=== PATIENT | male | born 1975 | race Caucasian/White ===

== ENCOUNTER 2020-06-17 08:16 | Outpatient (CLI) | payer OTHER ==
[2020-06-17 18:24] LABS: Hemoglobin 14.1 g/dL (14.0-18.0); Mean Corpuscular HGB CONC 32.1 g/dL (32.0-36.0); Mean Corpuscular Hemoglobin 25.2 pg (27.0-31.0); Mean Corpuscular Volume 78.3 fL (78.0-98.0); Mean Platelet Volume 8.9 fL (7.4-10.4); Platelet Count 218 thou/uL (130-400); RBC Distribution Width 14.3 % (11.5-14.5); Red Blood Cell (RBC) Count 5.59 mill/uL (4.70-6.10); White Blood Cell (WBC) Count 8.7 thou/uL (4.8-10.8)
[2020-06-17 18:34] LABS: INR-International Normal Ratio 0.9; PTT 29.2 sec (22.9-36.1); Prothrombin Time 12.5 sec (12.0-14.7)
[2020-06-17 19:23] LABS: Anion Gap 15 mmol/L (10-20); BUN (Urea Nitrogen) 14 mg/dL (8.9-20.6); Calc. Creatinine Clearance 0 mL/min (70-130); Calcium 9.5 mg/dL (7.8-10.44); Carbon Dioxide 28 mmol/L (22-29); Chloride 102 mmol/L (98-107); Estimated GFR-MDRD Greater than 90; Glucose 83 mg/dL (70-105); Potassium 4.7 mmol/L (3.5-5.1); Sodium 140 mmol/L (136-145)
[2020-06-18 13:14] LABS: SARS-CoV-2 MS2 Positive; SARS-CoV-2 N Gene Negative; SARS-CoV-2 S Gene Negative; SARS-CoV-2 by NAA Not Detected (NotDetected); SARS-CoV-2 orf1ab Negative
== END 2020-06-17 08:17 | disposition home or self-care (01) ==
LOC: LABBT 08:16
PROVIDERS: ATTEND Internal Medicine Cardiovascular Disease
DX: Z01.818 Encounter for other preprocedural examination (principal); Z20.828 Contact with and (suspected) exposure to other viral communicable diseases; I48.92 Unspecified atrial flutter
CPT/HCPCS: 80048; 85027; 85610; 85730; 87635; 93005; 93010; U0003

== ENCOUNTER 2020-06-22 05:50 | Day surgery (SDC) | payer OTHER ==
[2020-06-19 13:40] VITALS: BMI 52.7
[2020-06-22] MEDS ORDERED: Heparin 10,000 UNITS/ 10 ML VIAL ONE (06:30)
[2020-06-22] MEDS ORDERED: Fentanyl 100 MCG/2 ML VIAL ONE (07:06)
[2020-06-22] MEDS ORDERED: Midazolam HCl 2 mg/2 ml Vial ONE (07:06)
[2020-06-22] MEDS ORDERED: Ketamine 50 MG/ML (10ML VIAL) ONE (07:07)
[2020-06-22] MEDS ORDERED: Propofol 500 MG/50 ML VIAL ONE ×4 (07:07→08:38)
[2020-06-22] MEDS ORDERED: Phenylephrine 10 MG/ML VIAL ONE (07:24)
[2020-06-22] MEDS ORDERED: Amiodarone 150 MG/3 ML VIAL ONE (08:26)
[2020-06-22] MEDS ORDERED: DOPamine 400 MG/D5W 250 ML 250 ML ONE (08:27)
[2020-06-22] MEDS ORDERED: Acetaminophen/Codeine 30-300mg Tablet ONE (10:05)
[2020-06-22] MEDS ORDERED: Acetaminophen/Codeine 30-300mg Tablet PO PRN ×2 (10:15)
--- NOTE | 2020-06-22 10:31 | OP ---
DATE OF PROCEDURE: 06/22/2020 PROCEDURE PERFORMED: Electrophysiology study and radiofrequency ablation. REASON FOR PROCEDURE: Mr. Samuel is a 44-year-old man with prior history of recurrent atrial flutter, which appears to be typical isthmus dependent. He also used flecainide for suppression. He is here for EP study and ablation procedure. Anticoagulated with Eliquis. DESCRIPTION OF PROCEDURE: The patient received propofol by Anesthesia specialist. After adequate level of sedation achieved, the right femoral vein was prepped, draped, and anesthetized using subcutaneous lidocaine, and under ultrasound guidance, the right femoral vein was cannulated x2, two 8-Swedish short sheaths were introduced, through which a ThermoCool SFST catheter and a decapolar deflectable catheter were advanced to the right atrium, right ventricle, His bundle, and CS position. Pacing, mapping, and recording were performed at each location including pacing the left atrium via the CS. Following findings were noted. Baseline rhythm was sinus rhythm, cycle length 723 milliseconds, AK 161, QRS 61 milliseconds, QT 373 milliseconds, AH 106, HV is 39 milliseconds. Sinus node recovery time was 1100 milliseconds, corrected 410 milliseconds. The AV Wenckebach cycle length was seen at 280 milliseconds. Retrograde Wenckebach cycle length was noted at 420 milliseconds. AV lucia ERP was 600/200 milliseconds. No dual AV node physiology was present. Concentric retrograde VA conduction was seen. Burst atrial pacing induced an atrial flutter, which appears to be typical isthmus dependent in activation and overdrive pacing entering the tachycardia from the isthmus with tachycardia cycle length matched. The post pacing interval at this location was about 230 milliseconds. Also with catheter manipulation, the atrial fibrillation was induced, which required amiodarone suppression and cardioversion as well throughout the case. Cavotricuspid isthmus ablation was performed using total of 12 ablations at 40 dominguez, total duration of 4 minutes and 30 seconds. We were able to achieve prolongation of the cavotricuspid isthmus to 130 milliseconds with isthmus block demonstrated by longest transisthmus time adjacent to the ablation line seen. At the end of the case, dopamine was administered and the isthmus block persisted. CONCLUSION: 1. Inducible typical isthmus dependent atrial flutter. 2. Status post cavotricuspid isthmus ablation, achieving cavotricuspid isthmus block. 3. Inducible atrial fibrillation with catheter manipulation and burst atrial pacing during the case. 4. Normal sinus lucia and AV lucia function. No evidence of dual AV lucia physiology or accessory pathway present. PLAN: Continue Eliquis short-term. Stop flecainide, use as needed only, and monitor for recurrent atrial arrhythmias. Job ID: [id number]
[2020-06-22] MEDS ORDERED: Bivalirudin 250 MG VIAL ONE (14:08)
== END 2020-06-22 13:35 | disposition home or self-care (01) ==
LOC: CCL 05:50
PROVIDERS: ATTEND Internal Medicine Cardiovascular Disease
PROC: 4A023FZ Measurement of Cardiac Rhythm, Percutaneous Approach (ICD-10-PCS; principal; 2020-06-22)
PROC: 02583ZZ Destruction of Conduction Mechanism, Percutaneous Approach (ICD-10-PCS; principal; 2020-06-22)
PROC: 4A0234Z Measurement of Cardiac Electrical Activity, Percutaneous Approach (ICD-10-PCS; principal; 2020-06-22)
PROC: 02K83ZZ Map Conduction Mechanism, Percutaneous Approach (ICD-10-PCS; principal; 2020-06-22)
DX: I48.3 Typical atrial flutter (principal); J18.9 Pneumonia, unspecified organism; J91.8 Pleural effusion in other conditions classified elsewhere; I10 Essential (primary) hypertension; E66.01 Morbid (severe) obesity due to excess calories; Z68.43 Body mass index [BMI] 50.0-59.9, adult; Z79.01 Long term (current) use of anticoagulants; Z79.899 Other long term (current) drug therapy
CPT/HCPCS: 76942; 92960; 93005; 93010; 93613; 93623; 93653; C1732; J0282; J0583; J1265; J1644; J2250; J2370; J2704; J3010

== ENCOUNTER 2021-05-08 09:04 | Emergency (ER) | payer OTHER ==
[2021-05-08 09:56] LABS: #Basophils 0.1 thou/uL (0.0-0.2); #Eosinphils 0.2 thou/uL (0.0-0.7); #Lymphocytes 2.2 thou/uL (1.20-3.40); #Monocytes 0.5 thou/uL (0.11-0.59); #Neutrophils 6.5 thou/uL (1.40-6.50); %Basophils 0.7 % (0.0-1.0); %Eosinophils 2.6 % (0.0-10.0); %Monocytes 5.2 % (0.0-10.0); %Neutrophils 68.6 % (42.0-75.0); Hemoglobin 15.3 g/dL (14.0-18.0); Mean Corpuscular HGB CONC 31.9 g/dL (32.0-36.0); Mean Corpuscular Hemoglobin 24.8 pg (27.0-31.0); Mean Corpuscular Volume 77.8 fL (78.0-98.0); Mean Platelet Volume 7.8 fL (7.4-10.4); Platelet Count 232 thou/uL (130-400); RBC Distribution Width 14.8 % (11.5-14.5); Red Blood Cell (RBC) Count 6.18 mill/uL (4.70-6.10); White Blood Cell (WBC) Count 9.5 thou/uL (4.8-10.8)
[2021-05-08 10:13] LABS: Anion Gap 12 mmol/L (10-20); BUN (Urea Nitrogen) 13 mg/dL (8.9-20.6); Calc. Creatinine Clearance 0 mL/min (70-130); Calcium 9.5 mg/dL (7.8-10.44); Carbon Dioxide 27 mmol/L (22-29); Chloride 103 mmol/L (98-107); Glucose 121 mg/dL (70-105); Potassium 4.2 mmol/L (3.5-5.1); Sodium 138 mmol/L (136-145)
[2021-05-08 11:34] LABS: Troponin I Less than 0.010 ng/mL (< 0.028)
== END 2021-05-08 12:40 | disposition home or self-care (01) ==
LOC: ERS 09:04
DX: I48.0 Paroxysmal atrial fibrillation (principal); I10 Essential (primary) hypertension; Z79.01 Long term (current) use of anticoagulants
CPT/HCPCS: 36415; 71045; 80048; 83735; 84443; 84484; 85025; 93005

== ENCOUNTER 2023-10-06 15:14 | Observation (INO) | payer OTHER ==
[2023-10-06] MEDS ORDERED: dilTIAZem 25 MG/5 ML VIAL ONE (15:37)
[2023-10-06 15:40] LABS: #Basophils 0.1 thou/uL (0.0-0.2); #Eosinphils 0.1 thou/uL (0.0-0.7); #Monocytes 0.5 thou/uL (0.11-0.59); %Basophils 0.5 % (0.0-1.0); %Eosinophils 1.1 % (0.0-10.0); %Lymphocytes 23.3 % (21.0-51.0); %Monocytes 4.3 % (0.0-10.0); %Neutrophils 70.4 % (42.0-75.0); Hematocrit 45.5 % (42.0-52.0); Hemoglobin 14.9 g/dL (14.0-18.0); Mean Corpuscular HGB CONC 32.7 g/dL (32.0-36.0); Mean Corpuscular Hemoglobin 25.8 pg (27.0-31.0); Mean Corpuscular Volume 78.9 fl (78.0-98.0); Mean Platelet Volume 9.8 fL (7.4-10.4); Platelet Count 263 10x3/uL (130-400); RBC Distribution Width 14.7 % (11.5-14.5); Red Blood Cell (RBC) Count 5.77 mill/uL (4.70-6.10); White Blood Cell (WBC) Count 11.4 10x3/uL (4.8-10.8)
[2023-10-06 16:05] LABS: ALT (SGPT) 25 U/L (8-55); AST (SGOT) 16 U/L (5-34); Albumin 4.1 g/dL (3.5-5.0); Alkaline Phosphatase 70 U/L (40-110); Anion Gap 12 mmol/L (10-20); BUN (Urea Nitrogen) 11 mg/dL (8.9-20.6); Bilirubin, Total 0.6 mg/dL (0.2-1.2); Calc. Creatinine Clearance 0 mL/min (70-130); Calcium 9.5 mg/dL (7.8-10.44); Carbon Dioxide 27 mmol/L (22-29); Chloride 104 mmol/L (98-107); Estimated GFR 109; Globulin 3.1 g/dL (2.4-3.5); Glucose 123 mg/dL (70-105); Magnesium 1.9 mg/dL (1.6-2.6); Potassium 3.8 mmol/L (3.5-5.1); Protein, Total 7.2 g/dL (6.0-8.3); Sodium 139 mmol/L (136-145)
[2023-10-06 16:06] LABS: Troponin I Less than 0.010 ng/mL (< 0.028)
[2023-10-06 16:38] LABS: PTT 31.6 sec (22.9-36.1); Prothrombin Time 13.3 sec (12.0-14.7)
[2023-10-06] MEDS ORDERED: Metoprolol Tartrate 5 MG (5 mL) VIAL ONE ×2 (17:09→17:43)
[2023-10-06] MEDS ORDERED: dilTIAZem 125 MG/25 ML SDV ONE (18:48)
[2023-10-06] MEDS ORDERED: Ondansetron PF 4 MG/2 ML Vial IVP PRN (19:21)
[2023-10-06] MEDS ORDERED: Acetaminophen 325 MG TAB PO PRN (19:21)
[2023-10-06] MEDS ORDERED: Magnesium 2 GM/50 ML BAG (IN WATER) ONE (21:34)
[2023-10-06] MEDS ORDERED: Potassium Chloride 20 MEQ TAB ONE (21:34)
[2023-10-06] MEDS: Dronedarone HCl 400 MG TAB PO SCH (23:26)
[2023-10-06] MEDS: Apixaban 5 MG TAB PO SCH (23:26)
[2023-10-07 01:43] VITALS: BMI 56.5
[2023-10-07] MEDS: Allopurinol 100 MG TAB PO SCH (08:27)
[2023-10-07 12:36] VITALS: BP 144/91; TEMP 97.6
[2023-10-07] MEDS: Potassium Chloride 20 MEQ TAB PO SCH (13:16)
== END 2023-10-07 13:28 | disposition home or self-care (01) ==
LOC: ERS 15:14 → 2NO 19:19 → INTOOBSV 19:19
PROVIDERS: ADMIT Internal Medicine; ATTEND Internal Medicine
DX: I48.0 Paroxysmal atrial fibrillation (principal); I10 Essential (primary) hypertension; M10.9 Gout, unspecified; I48.92 Unspecified atrial flutter; G47.33 Obstructive sleep apnea (adult) (pediatric); E87.6 Hypokalemia; E83.42 Hypomagnesemia; E66.01 Morbid (severe) obesity due to excess calories; Z68.43 Body mass index [BMI] 50.0-59.9, adult; Z79.01 Long term (current) use of anticoagulants; Z98.890 Other specified postprocedural states; Z79.899 Other long term (current) drug therapy
CPT/HCPCS: 71045; 80053; 83735; 84484; 85025; 85610; 85730; 93005; G0378; J3475